=== PATIENT | female | born 1955 | race Caucasian/White ===

== ENCOUNTER → 2019-03-17 | Outpatient (CLI) | payer OTHER ==
[~2019-03-17] MED LIST: ALLEGRA180 MG PO; CALCIUM +D & M1 EACH PO; HYDROCHLOROTHIA25 M1 PO; LISINOPRIL20 MG PO; MULTI-VITAMIN1 EAC5 PO; NIFEDIPINE ER30 M1 PO; PAN-C 500 TABL1 EACH PO; TOPROL XL50 MG PO
== END ==
LOC: M.RAD 02-19 09:45
DX: Z12.31 Encounter for screening mammogram for malignant neoplasm of breast (principal); M85.88 Other specified disorders of bone density and structure, other site

== ENCOUNTER → 2020-06-13 | Outpatient (CLI) | payer OTHER | LOC: M.RAD 08:52 | PROVIDERS: ATTEND Family Medicine | DX: Z12.31 Encounter for screening mammogram for malignant neoplasm of breast (principal) ==

== ENCOUNTER → 2021-04-30 | Outpatient (CLI) | payer OTHER | LOC: M.RAD 09:09 | PROVIDERS: ATTEND Family Medicine | DX: Z12.2 Encounter for screening for malignant neoplasm of respiratory organs (principal); M85.88 Other specified disorders of bone density and structure, other site; I25.10 Atherosclerotic heart disease of native coronary artery without angina pectoris; I70.0 Atherosclerosis of aorta; Z87.891 Personal history of nicotine dependence ==